=== PATIENT | female | born 1945 | race Caucasian/White ===

== ENCOUNTER → 2016-08-07 | Outpatient (CLI) | payer MEDICARE, BC ==
[~2016-08-07] MED LIST: 00186-0372-20 IH; ALLEGRA 180MG180 MG PO; ALPRAZOLAM1 MG PO; AMITRIPTYLINE H50 M1 PO; AMITRIPTYLINE50 MG PO; AMLODIPINE BES2.5 MG PO; AMLODIPINE5 MG PO; AMOXICILLIN 50500 MG PO; ANUSOL-HC SUPPO25 MG RC; ARTHROTEC 775 MG/TAB; ASPIRIN 81M81 MG/TA2 PO; ATROVENT I0.2 MG/1 M IH; BACTRIM DS 8001 TAB PO; BIOTENE DRY M1000 ML MM; CALCIUM + D 5001 TAB PO; CALCIUM 600MG+D1 TAB PO; CALCIUM CARBONA1 TA2 PO; CENTRUM SILVER1 CTB PO; CINNAMON500 MG PO; CLARITIN 1010 MG/TAB PO; CLEOCIN HC150 MG/CAP PO; CLEOCIN HCL300 MG PO; CLOBETASOL0.051 TP; CLONAZEPAM1 MG PO; COLACE 100100 MG/CAP PO; CRANBERRY500 M3 PO; CYCLOBENZAPRINE10 MG PO; CYTOTEC 20200 MCG/T1; CYTOTEC200 MCG PO; DECADRON OPHTH D5 ML OP; DEXAMETHASONE; DEXAMETHASONE0.5 MG PO; DICLOFENAC SOD75 MG PO; DITROPAN 5MG TAB5 MG PO; DITROPAN XL 5MG5 M1 PO; DOXYCYCLINE 10100 MG PO; DUEXIS 26.6 MG-1 TAB PO; ELAVIL100 MG PO; FAMILY PHARMAC0.4 MG PO; FENTANYL 25 MCG TOP; FENTANYL 50MCG TD; FENTANYL 50MCG TOP; FENTANYL 75MCG TOP; FERROUS SU325 MG/TAB PO; FERROUS SULFAT324 MG PO; FIBERCON; FIBERCON PO; FIBERCON500 MG PO; FIBERCON625 MG PO; FIORICET 325 MG1 TA1 PO; FLUOXETINE PO; FORADIL; FORADIL AERO0.012 MG IH; GEODON60 MG PO; GLYCOLAX17 GM/PACK PO; HAIR SKIN AND NAILS; HAIR SKIN NAIL PO; HAIRSKINNAILS PO; HALCION0.25 MG PO; INTRATHECAL PUMP; IPRATROPIUM BROM3 M1 IH; IRON TABLETS325 MG PO; KETOROLAC10 MG PO; KLOR-CON 1010 MEQ; KLOR-CON 88 MEQ PO; KLOR-CON M2020 MEQ PO; LASIX 20MG TABL20 MG PO; LASIX40 MG PO; LIPITOR 10MG10 MG PO; LOPRESSOR 225 MG/TAB PO; LORTAB 7.5/5001 TAB; LOTRIMIN1% TP; LOVENOX 4040 MG/0.4 SQ; LYRICA75 MG PO; MEDROL 4MG DOSPA4 MG PO; MELATONIN CR3 MG PO; MELATONIN0.5 MG SL; MELATONIN3 M1 PO; MIACALCIN NASA3.7 ML NS; MIRALAX PA17 GM/Dose PO; MIRAPEX 1MG PO; MIRAPEX0.25 MG PO; MIRAPEX0.5 MG PO; MIRTAZAPINE45 MG PO; MISOPROST200 MCG PO; MORPHINE 1515 MG/TAB PO; MULTI VITAMINS1 TAB PO; MULTIPLE VITAMI1 CAP PO; MYRBETR25MG PO; MYRBETR50MG PO; NASACORT AQ N16.5 GM NS; NASACORT55 MCG/ACT NS; NEURONTIN100 MG/CAP PO; NITROSTAT0.4 MG/TAB; NITROSTAT0.4 MG/TAB SL; NORCO 325 MG-101 TAB PO; NORVASC 5MG5 MG/TAB PO; NORVASC2.5 MG PO; NYSTATIN 100MU/ML PO; OMEGA-3 FISH1000 MG PO; OXY IR5 MG PO; OXYCODONE HCL20 MG PO; OXYCODONE/APAP1 TA4 PO; OXYCONTIN10 MG PO; OXYTROL PA1 PATCH.BW TD; OZURDEX0.7 MG IO; PERCOCET 325 MG1 TA2 PO; PERCOCET 500 MG1 TAB PO; PERCR 7.5 PO; PHENERGAN 25 TA25 MG PO; PHENERGAN25 MG RC; POLYETHYLENE GL1 OI1 PO; POTASSIUM CHLOR8 ME1 PO; PREDNISONE20 MG PO; PRILOSEC 20MG20 MG PO; PRINCIPEN500 MG PO; PRINIVIL20 MG PO; PRISTIQ 50 MG T50 MG PO; PROBIOTIC-MAJOR PO; PROVENTIL0.09 MG/A1 IH; PROZAC 20MG20 MG PO; PULMICORT0.5 MG/2 M IH; RANITIDINE300 MG PO; RAZADYNE 4MG (FO4 MG PO; RAZADYNE8 MG PO; ROXICODONE 55 MG/TAB PO; RT ALBUTER2.5 MG/0.5 IH; RT SPIRIVA18 MCG IH; SEE INSTRUCTIONS IT; SEROQUEL 2525 MG/TAB PO; SEROQUEL50 MG PO; SIMVASTATIN10 MG PO; SINEMET 25/101 UDTAB PO; SINGULAIR 110 MG/TAB PO; SINGULAIR10 MG PO; SPIRIVA INH; SPIRIVA18 MCG IH; TESSALON P100 MG/CAP PO; TESSALON PERLE100 MG PO; THERA TABS1 TAB PO; THERA TEARS; THERAGRAN1 TA1 PO; THERATEARS 15 M15 ML OP; TOPROL XL 25MG25 MG PO; TRIAMCINOLONE A15 G3 TP; VALIUM 2MG T2 MG/TAB PO; VITAMIN C500 MG PO; VITAMIN D1000 IU PO; VITAMIN D2000 I1 PO; VITAMIN D2400 IU PO; VITAMIN D32000 I1 PO; VITAMIN D32000 IU PO; VOLTAREN SR25 MG/TAB PO; WELLBUTRIN 75MG75 MG PO; XANAX 1MG1 MG PO; ZANAFLEX2 MG PO; ZANTAC 150150 MG PO; ZANTAC 150MG T150 MG PO; ZESTRIL 20MG TA20 MG PO; ZOCOR 10MG10 MG PO; ZYPREXA10 MG PO; [UNRECOGNIZED DRUG - CODE]; [UNRECOGNIZED DRUG - OTHER] OP; [UNRECOGNIZED DRUG - OTHER] TP
== END ==
LOC: BHSO 09:26
DX: F06.32 Mood disorder due to known physiological condition with major depressive-like episode (principal)

== ENCOUNTER → 2016-09-28 | Outpatient (CLI) | payer MEDICARE, BC | LOC: BHSO 09:21 | DX: F06.32 Mood disorder due to known physiological condition with major depressive-like episode (principal) ==

== ENCOUNTER 2016-11-20 16:58 | Emergency (ER) | payer MEDICARE, BC ==
[~2016-11-20] VITALS: Ht 154.9 cm; Wt 67.7 kg
[~2016-11-20 16:58] MED LIST changes: -CLEOCIN HC150 MG/CAP PO; -NEURONTIN100 MG/CAP PO; -PRISTIQ 50 MG T50 MG PO; -SINEMET 25/101 UDTAB PO
[2016-11-20 17:09] VITALS: BP 124/58; TEMP 97.9
[2016-11-20 18:41] LABS: BASO % 0.4 % (0.0-2.0); EOS # 0.1 (0.0-0.7); EOS % 1.9 % (0-4.0); GRAN # 4.8 (1.4-6.5); GRAN % 66.1 % (42.2-75.2); LYMPH # 1.8 (1.2-3.4); LYMPH % 24.2 % (20.0-51.0); MEAN CELL VOLUME 89 fl (80.0-100.0); MEAN CORPUSCULAR HGB CONC 34 g/dl (33.0-37.0); MEAN PLATELET VOLUME 9.5 fl (7.4-10.4); MONO # 0.5 (0.1-0.6); MONO % 7.1 % (1.7-9.3); PLATELET COUNT 165 K/mm3 (130-400); RED BLOOD COUNT 3.66 M/mm3 (4.10-5.30); REDCELL DISTRIBUTION WIDTH-CV 12.4 % (11.5-14.5); WHITE BLOOD COUNT 7.3 K/mm3 (4.8-10.8)
[2016-11-20 18:43] LABS: HEMATOCRIT 32.6 % (37.0-47.0); HEMOGLOBIN 11.2 g/dl (12.5-16.0); MEAN CORPUSCULAR HEMOGLOBIN 31 pg (27.0-31.0)
[2016-11-20 18:56] LABS: ADJUSTED CALCIUM 9.6 mg/dL (8.4-10.2); ALBUMIN 4.1 gm/dL (3.5-5.0); BILIRUBIN,TOTAL 0.6 mg/dL (0.0-1.0); C-REACTIVE PROTEIN 2.8 mg/dL (0.0-0.9); CALCIUM 9.7 mg/dL (8.4-10.2); CREATININE, serum 0.87 mg/dL (0.52-1.25); TOTAL PROTEIN 7.1 gm/dL (6.4-8.2)
[2016-11-20] MEDS ORDERED: CLEOCIN HC150 MG/CAP PO (19:08)
[2016-11-20 19:38] VITALS: PULSE 72
== END 2016-11-20 19:40 | disposition home or self-care (01) ==
LOC: COL.ER 16:58
PROVIDERS: Nurse Practitioner
DX: L03.116 Cellulitis of left lower limb (principal); S81.812A Laceration without foreign body, left lower leg, initial encounter; W01.198A Fall on same level from slipping, tripping and stumbling with subsequent striking against other object, initial encounter; I10 Essential (primary) hypertension; J44.9 Chronic obstructive pulmonary disease, unspecified; F32.9 Major depressive disorder, single episode, unspecified; Z23 Encounter for immunization

== ENCOUNTER → 2016-11-27 | Outpatient (CLI) | payer MEDICARE, BC ==
[~2016-11-27] MED LIST changes: +CLEOCIN HC150 MG/CAP PO; +NEURONTIN100 MG/CAP PO; +PRISTIQ 50 MG T50 MG PO; +SINEMET 25/101 UDTAB PO
== END ==
LOC: BHSO 08:31
DX: F06.32 Mood disorder due to known physiological condition with major depressive-like episode (principal)

== ENCOUNTER → 2016-12-27 | Outpatient (CLI) | payer MEDICARE, BC | LOC: BHSO 09:25 | DX: F06.32 Mood disorder due to known physiological condition with major depressive-like episode (principal) ==

== ENCOUNTER 2017-01-20 15:51 | Emergency (ER) | payer MEDICARE, BC ==
[~2017-01-20] VITALS: Ht 154.9 cm; Wt 72.3 kg
[~2017-01-20 15:51] MED LIST changes: -NEURONTIN100 MG/CAP PO; -PRISTIQ 50 MG T50 MG PO; -SINEMET 25/101 UDTAB PO
[2017-01-20 16:51] LABS: BASO % 0.4 % (0.0-2.0); EOS # 0.2 (0.0-0.7); EOS % 3.5 % (0-4.0); GRAN # 2.2 (1.4-6.5); GRAN % 49.3 % (42.2-75.2); LYMPH # 1.7 (1.2-3.4); LYMPH % 36.9 % (20.0-51.0); MEAN CELL VOLUME 89 fl (80.0-100.0); MEAN CORPUSCULAR HGB CONC 34 g/dl (33.0-37.0); MONO # 0.4 (0.1-0.6); MONO % 8.8 % (1.7-9.3); PLATELET COUNT 158 K/mm3 (130-400); RED BLOOD COUNT 3.58 M/mm3 (4.10-5.30); REDCELL DISTRIBUTION WIDTH-CV 13.3 % (11.5-14.5); WHITE BLOOD COUNT 4.6 K/mm3 (4.8-10.8)
[2017-01-20 16:52] LABS: HEMATOCRIT 31.7 % (37.0-47.0); HEMOGLOBIN 10.8 g/dl (12.5-16.0); MEAN CORPUSCULAR HEMOGLOBIN 30 pg (27.0-31.0)
[2017-01-20 17:03] LABS: ADJUSTED CALCIUM 9.1 mg/dL (8.4-10.2); ALBUMIN 4.2 gm/dL (3.5-5.0); BILIRUBIN,TOTAL 0.3 mg/dL (0.0-1.0); CALCIUM 9.3 mg/dL (8.4-10.2); CREATININE, serum 0.79 mg/dL (0.52-1.25); POTASSIUM 3.8 mmol/L (3.4-5.0); TOTAL PROTEIN 7.2 gm/dL (6.4-8.2)
[2017-01-20 17:49] VITALS: BP 146/75; PULSE 59; TEMP 98.4
== END 2017-01-20 17:50 | disposition home or self-care (01) ==
LOC: COL.ER 15:51
PROVIDERS: Emergency Medicine
DX: R60.9 Edema, unspecified (principal); E11.42 Type 2 diabetes mellitus with diabetic polyneuropathy; I11.0 Hypertensive heart disease with heart failure; I50.9 Heart failure, unspecified; I25.2 Old myocardial infarction; E78.5 Hyperlipidemia, unspecified; K21.9 Gastro-esophageal reflux disease without esophagitis; F31.9 Bipolar disorder, unspecified; F41.9 Anxiety disorder, unspecified; J44.9 Chronic obstructive pulmonary disease, unspecified; M19.90 Unspecified osteoarthritis, unspecified site; G89.29 Other chronic pain; G20 Parkinson's disease; G30.9 Alzheimer's disease, unspecified; Z90.49 Acquired absence of other specified parts of digestive tract; Z98.890 Other specified postprocedural states; Z98.84 Bariatric surgery status; Z96.651 Presence of right artificial knee joint; Z99.81 Dependence on supplemental oxygen
CPT/HCPCS: J1940

== ENCOUNTER → 2017-03-04 | Outpatient (CLI) | payer MEDICARE, BC ==
[~2017-03-04] MED LIST changes: +NEURONTIN100 MG/CAP PO; +PRISTIQ 50 MG T50 MG PO; +SINEMET 25/101 UDTAB PO
== END ==
LOC: BHSO 09:27
DX: F33.41 Major depressive disorder, recurrent, in partial remission (principal)

== ENCOUNTER 2017-03-15 19:11 | Emergency (ER) | payer MEDICARE, BC ==
[~2017-03-15] VITALS: Ht 152.4 cm; Wt 81.8 kg
[~2017-03-15 19:11] MED LIST changes: -NEURONTIN100 MG/CAP PO; -PRISTIQ 50 MG T50 MG PO; -SINEMET 25/101 UDTAB PO
[2017-03-15 19:12] VITALS: BP 173/86; TEMP 98.8
[2017-03-15] MEDS ORDERED: SEROQUEL50 MG PO (20:01)
[2017-03-15] MEDS ORDERED: NEURONTIN100 MG/CAP PO (20:01)
[2017-03-15] MEDS ORDERED: PRISTIQ 50 MG T50 MG PO (20:02)
[2017-03-15] MEDS ORDERED: SINEMET 25/101 UDTAB PO (20:10)
[2017-03-15 21:41] LABS: BASO % 0.3 % (0.0-2.0); EOS # 0.2 (0.0-0.7); EOS % 3.3 % (0-4.0); GRAN # 3.5 (1.4-6.5); GRAN % 57.7 % (42.2-75.2); HEMOGLOBIN 10.8 g/dl (12.5-16.0); LYMPH # 1.9 (1.2-3.4); LYMPH % 30.8 % (20.0-51.0); MEAN CELL VOLUME 89 fl (80.0-100.0); MEAN CORPUSCULAR HEMOGLOBIN 31 pg (27.0-31.0); MEAN CORPUSCULAR HGB CONC 35 g/dl (33.0-37.0); MEAN PLATELET VOLUME 9.2 fl (7.4-10.4); MONO # 0.5 (0.1-0.6); MONO % 7.6 % (1.7-9.3); PLATELET COUNT 172 K/mm3 (130-400); REDCELL DISTRIBUTION WIDTH-CV 13.6 % (11.5-14.5)
[2017-03-15 21:55] LABS: ADJUSTED CALCIUM 9.3 mg/dL (8.4-10.2); ALBUMIN 4.4 gm/dL (3.5-5.0); BILIRUBIN,TOTAL 0.5 mg/dL (0.0-1.0); CALCIUM 9.6 mg/dL (8.4-10.2); CREATININE, serum 0.64 mg/dL (0.52-1.25); POTASSIUM 3.9 mmol/L (3.4-5.0); TOTAL PROTEIN 7.5 gm/dL (6.4-8.2)
[2017-03-15 23:23] VITALS: PULSE 60
== END 2017-03-15 23:30 | disposition home or self-care (01) ==
LOC: COL.ER 19:11
PROVIDERS: Emergency Medicine
DX: R60.0 Localized edema (principal); Z98.890 Other specified postprocedural states
CPT/HCPCS: J1940

== ENCOUNTER → 2017-06-04 | Outpatient (CLI) | payer MEDICARE, BC, OTHER ==
[~2017-06-04] MED LIST changes: +NEURONTIN100 MG/CAP PO; +PRISTIQ 50 MG T50 MG PO; +SINEMET 25/101 UDTAB PO
== END ==
LOC: MC.RAD 11:19
DX: Z12.31 Encounter for screening mammogram for malignant neoplasm of breast (principal)

== ENCOUNTER → 2017-06-05 | Outpatient (CLI) | payer MEDICARE, BC, OTHER | LOC: BHSO 09:29 | DX: F33.41 Major depressive disorder, recurrent, in partial remission (principal) ==

== ENCOUNTER 2017-08-29 11:08 | Inpatient (IN) | payer MEDICARE, BC, OTHER ==
[~2017-08-29] VITALS: Ht 152.4 cm; Wt 90.5 kg
[2017-08-29] VITALS (144 sets, daily range): BP systolic 103–136; BP diastolic 60–80; PULSE 62–93; TEMP 98.4; O2SAT 88–100
[2017-08-29 12:19] LABS: ARTERIAL BLD GAS O2 SATURATION 95.2 % (92-100); ARTERIAL BLD GAS TCO2 CT 28.9; ARTERIAL BLOOD GAS BASE EXCESS 2.1 (-2-2); ARTERIAL BLOOD GAS HCO3 27.5 meq/L (22-26); ARTERIAL BLOOD GAS PCO2 46.4 mmHg (35-45); ARTERIAL BLOOD GAS PO2 81.4 mmHg (80-100); ARTERIAL BLOOD GAS pH 7.39 (7.35-7.45)
[2017-08-29 12:35] LABS: ALANINE AMINOTRANSFERASE 24 U/L (9-52); ALBUMIN 4.4 gm/dL (3.5-5.0); ALKALINE PHOSPHATASE 121 U/L (50-136); ANION GAP 9 mmol/L (7-16); AST,SGOT 43 U/L (15-37); BILIRUBIN,TOTAL 0.4 mg/dL (0.0-1.0); BLOOD UREA NITROGEN 23 mg/dL (7-17); CALCIUM 9.5 mg/dL (8.4-10.2); CARBON DIOXIDE 30 mmol/L (22-30); CHLORIDE 93 mmol/L (98-107); CREATININE, serum 0.65 mg/dL (0.52-1.25); GLUCOSE 111 mg/dL (74-106); POTASSIUM 3.8 mmol/L (3.4-5.0); SODIUM 131 mmol/L (137-145); TOTAL PROTEIN 7.5 gm/dL (6.4-8.2)
[2017-08-29 12:40] LABS: BASO % 0.4 % (0.0-2.0); EOS # 0.1 (0.0-0.7); EOS % 1.7 % (0-4.0); LYMPH # 1.6 (1.2-3.4); MEAN CELL VOLUME 91 fl (80.0-100.0); MEAN CORPUSCULAR HGB CONC 34 g/dl (33.0-37.0); MEAN PLATELET VOLUME 9.3 fl (7.4-10.4); MONO # 0.5 (0.1-0.6); MONO % 6.5 % (1.7-9.3); PLATELET COUNT 189 K/mm3 (130-400); RED BLOOD COUNT 3.62 M/mm3 (4.10-5.30); REDCELL DISTRIBUTION WIDTH-CV 13.2 % (11.5-14.5)
[2017-08-29 12:44] LABS: PROTHROMBIN TIME 12.1 SECONDS (9.7-12.8)
[2017-08-29 12:45] LABS: TROPONIN-I < 0.012 ng/mL (0.000-0.034)
[2017-08-29 12:46] LABS: TROPONIN-I < 0.012 ng/mL (0.000-0.034)
[2017-08-29 12:47] LABS: PARTIAL THROMBOPLASTIN TIME 30.8 SECONDS (26.0-37.0)
[2017-08-29 12:48] LABS: HEMOGLOBIN 11.1 g/dl (12.5-16.0); MEAN CORPUSCULAR HEMOGLOBIN 31 pg (27.0-31.0)
[2017-08-29] MEDS ORDERED: PLAVIX 75MG TAB75 MG PO (13:22)
[2017-08-29] MEDS ORDERED: BREO IH (13:26)
[2017-08-29] MEDS ORDERED: [UNRECOGNIZED DRUG - OTHER] TOP (13:34)
[2017-08-29] MEDS ORDERED: THERATEARS SGL PO (13:37)
[2017-08-29] MEDS ORDERED: FERROUS SU325 MG/TAB PO (13:38)
[2017-08-29] MEDS ORDERED: ARICEPT 5MG PO (13:38)
[2017-08-29] MEDS ORDERED: INCRUSE EL62.5 MCG/A IH (13:42)
[2017-08-29] MEDS ORDERED: LOPRESSOR 225 MG/TAB PO (13:42)
[2017-08-29] MEDS ORDERED: HAIRSKINNAILS PO (13:48)
[2017-08-29] MEDS ORDERED: MYRBETR50MG PO (13:48)
[2017-08-29] MEDS ORDERED: PAMELOR 25MG25 MG PO (13:49)
[2017-08-29] MEDS ORDERED: PROBIOTIC FORMU1 CAP PO (13:50)
[2017-08-29] MEDS ORDERED: FIBERCON PO (13:50)
[2017-08-29] MEDS ORDERED: RESTORIL 1515 MG/CAP PO (14:15)
[2017-08-29] MEDS ORDERED: VENTOLIN0.09 MG IH (14:17)
[2017-08-29 14:20] LABS: COLLECTION METHOD CATHETER
[2017-08-29 14:26] LABS: PH 7 (5-8); SQUAMOUS EPITHELIAL 0-2 /hpf; URINE APPEARANCE Clear; URINE BACTERIA Rare /hpf; URINE BILIRUBIN Negative (NEGATIVE); URINE BLOOD Negative (NEGATIVE); URINE COLOR Straw; URINE GLUCOSE Negative (NEGATIVE); URINE KETONE Negative (NEGATIVE); URINE LEUKOCYTE ESTERASE Trace (NEGATIVE); URINE NITRATE Negative (NEGATIVE); URINE PROTEIN(semi-quant) Negative (NEGATIVE); URINE RBC 0-2 /hpf; URINE UROBILINOGEN Negative (NEGATIVE)
[2017-08-30] VITALS (398 sets, daily range): BP systolic 80–178; BP diastolic 36–97; PULSE 54–96; TEMP 97.4–98.1; O2SAT 84–100
[2017-08-30 02:53] LABS: BASO % 0.4 % (0.0-2.0); EOS # 0.1 (0.0-0.7); EOS % 1.4 % (0-4.0); GRAN # 3.8 (1.4-6.5); GRAN % 67.4 % (42.2-75.2); LYMPH # 1.3 (1.2-3.4); LYMPH % 22.3 % (20.0-51.0); MEAN CELL VOLUME 91 fl (80.0-100.0); MEAN CORPUSCULAR HGB CONC 33 g/dl (33.0-37.0); MEAN PLATELET VOLUME 9.4 fl (7.4-10.4); MONO # 0.5 (0.1-0.6); MONO % 8.3 % (1.7-9.3); PLATELET COUNT 147 K/mm3 (130-400); RED BLOOD COUNT 3.18 M/mm3 (4.10-5.30); REDCELL DISTRIBUTION WIDTH-CV 13.2 % (11.5-14.5)
[2017-08-30 02:54] LABS: HEMATOCRIT 28.8 % (37.0-47.0); HEMOGLOBIN 9.6 g/dl (12.5-16.0); MEAN CORPUSCULAR HEMOGLOBIN 30 pg (27.0-31.0)
[2017-08-30 03:03] LABS: ANION GAP 5 mmol/L (7-16); BLOOD UREA NITROGEN 13 mg/dL (7-17); CALCIUM 7.9 mg/dL (8.4-10.2); CARBON DIOXIDE 27 mmol/L (22-30); CHLORIDE 98 mmol/L (98-107); CREATININE, serum 0.58 mg/dL (0.52-1.25); GLUCOSE 102 mg/dL (74-106); MAGNESIUM 1.6 mg/dL (1.6-2.3); POTASSIUM 3.8 mmol/L (3.4-5.0); SODIUM 130 mmol/L (137-145)
[2017-08-30 03:47] LABS: TROPONIN-I < 0.012 ng/mL (0.000-0.034)
[2017-08-31 00:22] VITALS: BP 111/63; PULSE 86; TEMP 97.6
[2017-08-31 04:07] VITALS: BP 123/49; PULSE 76; TEMP 97.7
[2017-08-31 07:38] LABS: CALCIUM 8.6 mg/dL (8.4-10.2); CREATININE, serum 0.62 mg/dL (0.52-1.25); POTASSIUM 3.5 mmol/L (3.4-5.0)
[2017-08-31 08:16] VITALS: BP 184/105; PULSE 102; TEMP 98.5
[2017-08-31 11:20] VITALS: BP 152/122; PULSE 98; TEMP 98
[2017-08-31 16:01] VITALS: BP 150/76; PULSE 75; TEMP 97.8
[2017-08-31] MEDS ORDERED: ELIQUIS 5MG PO (16:42)
[2017-08-31] MEDS ORDERED: TYLENOL 325MG325 MG PO (16:43)
[2017-08-31] MEDS ORDERED: BETAPACE 80MG80 MG PO (16:43)
[2017-08-31] MEDS ORDERED: SEROQUEL 2525 MG/TAB PO (16:44)
[2017-08-31] MEDS ORDERED: DESENEX TP (16:45)
== END 2017-08-31 17:32 | disposition home or self-care (01) | DRG 309 ==
LOC: COL.ER 11:08 → ICU 18:23 → MEDICAL 08-30 11:31
PROVIDERS: Anesthesiology Critical Care Medicine; Family Medicine
DX: I48.91 Unspecified atrial fibrillation (principal); F02.81 Dementia in other diseases classified elsewhere, unspecified severity, with behavioral disturbance; E87.1 Hypo-osmolality and hyponatremia; B37.49 Other urogenital candidiasis; N39.0 Urinary tract infection, site not specified; G20 Parkinson's disease; I10 Essential (primary) hypertension; G51.0 Bell's palsy; E11.9 Type 2 diabetes mellitus without complications; F31.9 Bipolar disorder, unspecified; J44.9 Chronic obstructive pulmonary disease, unspecified; F03.90 Unspecified dementia, unspecified severity, without behavioral disturbance, psychotic disturbance, mood disturbance, and anxiety; G89.29 Other chronic pain; M54.9 Dorsalgia, unspecified; R44.1 Visual hallucinations; F41.1 Generalized anxiety disorder; B96.20 Unspecified Escherichia coli [E. coli] as the cause of diseases classified elsewhere
CPT/HCPCS: 99223-AI; 99239; J1650; J3475; J7030; J7050; Q9967

== ENCOUNTER 2017-09-04 10:26 | Observation (INO) | payer MEDICARE, BC, OTHER ==
[~2017-09-04] VITALS: Ht 152.4 cm; Wt 92.6 kg
[~2017-09-04 10:26] MED LIST changes: +ARICEPT 5MG PO; +BETAPACE 80MG80 MG PO; +BREO IH; +DESENEX TP; +ELIQUIS 5MG PO; +INCRUSE EL62.5 MCG/A IH; +PAMELOR 25MG25 MG PO; +PLAVIX 75MG TAB75 MG PO; +PROBIOTIC FORMU1 CAP PO; +RESTORIL 1515 MG/CAP PO; +THERATEARS SGL PO; +TYLENOL 325MG325 MG PO; +VENTOLIN0.09 MG IH; +[UNRECOGNIZED DRUG - OTHER] TOP
[2017-09-04 11:40] LABS: BASO % 0.3 % (0.0-2.0); EOS # 0.2 (0.0-0.7); EOS % 2.9 % (0-4.0); GRAN % 72.8 % (42.2-75.2); LYMPH # 1.1 (1.2-3.4); LYMPH % 16.3 % (20.0-51.0); MEAN CELL VOLUME 94 fl (80.0-100.0); MEAN CORPUSCULAR HGB CONC 32 g/dl (33.0-37.0); MEAN PLATELET VOLUME 9.3 fl (7.4-10.4); MONO # 0.5 (0.1-0.6); MONO % 7.3 % (1.7-9.3); PLATELET COUNT 167 K/mm3 (130-400); RED BLOOD COUNT 2.93 M/mm3 (4.10-5.30); REDCELL DISTRIBUTION WIDTH-CV 13.3 % (11.5-14.5)
[2017-09-04 11:41] LABS: HEMATOCRIT 27.6 % (37.0-47.0); HEMOGLOBIN 8.9 g/dl (12.5-16.0); MEAN CORPUSCULAR HEMOGLOBIN 30 pg (27.0-31.0)
[2017-09-04 11:50] LABS: INR 1.4 (0.8-3.0); PROTHROMBIN TIME 15.7 SECONDS (9.7-12.8)
[2017-09-04 11:52] LABS: ALBUMIN 3.4 gm/dL (3.5-5.0); BILIRUBIN,TOTAL 0.2 mg/dL (0.0-1.0); CALCIUM 8.8 mg/dL (8.4-10.2); CREATININE, serum 0.64 mg/dL (0.52-1.25); PARTIAL THROMBOPLASTIN TIME 35.8 SECONDS (26.0-37.0); POTASSIUM 4.1 mmol/L (3.4-5.0); TOTAL PROTEIN 5.8 gm/dL (6.4-8.2)
[2017-09-04 13:02] LABS: COLLECTION METHOD CATHETER
[2017-09-04 13:17] LABS: PH 5 (5-8); SQUAMOUS EPITHELIAL 0-2 /hpf; URINE APPEARANCE Hazy; URINE BACTERIA Rare /hpf; URINE BILIRUBIN Negative (NEGATIVE); URINE BLOOD 2+ (NEGATIVE); URINE COLOR Yellow; URINE GLUCOSE Negative (NEGATIVE); URINE KETONE Negative (NEGATIVE); URINE LEUKOCYTE ESTERASE Trace (NEGATIVE); URINE NITRATE Negative (NEGATIVE); URINE PROTEIN(semi-quant) Negative (NEGATIVE); URINE UROBILINOGEN Negative (NEGATIVE)
[2017-09-04 17:16] VITALS: BP 152/65; PULSE 65; TEMP 98
[2017-09-04 18:20] LABS: HEMATOCRIT 30.7 % (37.0-47.0); HEMOGLOBIN 9.9 g/dl (12.5-16.0)
[2017-09-04 20:00] VITALS: BP 130/77; PULSE 63; TEMP 98.1
[2017-09-05 01:48] VITALS: BP 111/84; PULSE 75; TEMP 97.3
[2017-09-05 04:46] VITALS: BP 117/99; PULSE 116; TEMP 98.3
[2017-09-05 07:13] LABS: BASO % 0.4 % (0.0-2.0); EOS # 0.2 (0.0-0.7); GRAN # 2.7 (1.4-6.5); GRAN % 55.8 % (42.2-75.2); LYMPH # 1.4 (1.2-3.4); MEAN CELL VOLUME 92 fl (80.0-100.0); MEAN CORPUSCULAR HGB CONC 33 g/dl (33.0-37.0); MONO # 0.4 (0.1-0.6); MONO % 9.2 % (1.7-9.3); PLATELET COUNT 160 K/mm3 (130-400); RED BLOOD COUNT 3.22 M/mm3 (4.10-5.30); REDCELL DISTRIBUTION WIDTH-CV 13.4 % (11.5-14.5)
[2017-09-05 07:18] LABS: HEMATOCRIT 29.7 % (37.0-47.0); HEMOGLOBIN 9.8 g/dl (12.5-16.0); MEAN CORPUSCULAR HEMOGLOBIN 30 pg (27.0-31.0)
[2017-09-05 07:23] LABS: CALCIUM 8.7 mg/dL (8.4-10.2); CREATININE, serum 0.57 mg/dL (0.52-1.25); POTASSIUM 3.8 mmol/L (3.4-5.0)
[2017-09-05 08:34] VITALS: BP 139/83; PULSE 62; TEMP 97.6
[2017-09-05 11:03] VITALS: BP 152/118; PULSE 82; TEMP 98
[2017-09-05 14:06] VITALS: BP 122/58; PULSE 102; TEMP 98.4
[2017-09-05 19:40] VITALS: BP 160/100; PULSE 73; TEMP 97.8
[2017-09-06 00:31] VITALS: BP 97/43; PULSE 58; TEMP 98.2
[2017-09-06 03:57] VITALS: BP 108/75; PULSE 58; TEMP 98.3
[2017-09-06 06:52] LABS: BASO % 0.4 % (0.0-2.0); EOS # 0.2 (0.0-0.7); EOS % 3.1 % (0-4.0); GRAN # 3.2 (1.4-6.5); GRAN % 65.4 % (42.2-75.2); LYMPH # 1.1 (1.2-3.4); LYMPH % 21.5 % (20.0-51.0); MEAN CELL VOLUME 96 fl (80.0-100.0); MEAN CORPUSCULAR HGB CONC 31 g/dl (33.0-37.0); MEAN PLATELET VOLUME 9.1 fl (7.4-10.4); MONO # 0.5 (0.1-0.6); MONO % 9.2 % (1.7-9.3); PLATELET COUNT 157 K/mm3 (130-400); RED BLOOD COUNT 3.13 M/mm3 (4.10-5.30); REDCELL DISTRIBUTION WIDTH-CV 13.8 % (11.5-14.5)
[2017-09-06 06:56] LABS: HEMOGLOBIN 9.4 g/dl (12.5-16.0); MEAN CORPUSCULAR HEMOGLOBIN 30 pg (27.0-31.0)
[2017-09-06 07:13] LABS: CALCIUM 8.5 mg/dL (8.4-10.2); CREATININE, serum 0.73 mg/dL (0.52-1.25); POTASSIUM 3.7 mmol/L (3.4-5.0)
[2017-09-06 08:24] VITALS: BP 129/52; PULSE 67; TEMP 98.9
[2017-09-06 11:04] VITALS: BP 172/70; PULSE 88; TEMP 98.8
[2017-09-06] MEDS ORDERED: LASIX 40MG TABL40 MG PO (13:15)
[2017-09-06] MEDS ORDERED: AMOXICILLIN/CLA1 TA1 PO (13:18)
[2017-09-06] MEDS ORDERED: PROTONIX 40MG T40 MG PO (13:19)
[2017-09-06] MEDS ORDERED: DIFLUCAN150 MG PO (13:19)
== END 2017-09-06 17:49 | disposition home or self-care (01) ==
LOC: COL.ER 10:26 → MEDICAL 15:18
PROVIDERS: Emergency Medicine; Physician Assistant
DX: K92.1 Melena (principal); D50.9 Iron deficiency anemia, unspecified; K29.30 Chronic superficial gastritis without bleeding; K64.1 Second degree hemorrhoids; K57.30 Diverticulosis of large intestine without perforation or abscess without bleeding; R55 Syncope and collapse; R53.1 Weakness; K64.8 Other hemorrhoids; N39.0 Urinary tract infection, site not specified; I48.91 Unspecified atrial fibrillation; E11.9 Type 2 diabetes mellitus without complications; L30.4 Erythema intertrigo; G20 Parkinson's disease; E78.5 Hyperlipidemia, unspecified; F31.9 Bipolar disorder, unspecified; F03.90 Unspecified dementia, unspecified severity, without behavioral disturbance, psychotic disturbance, mood disturbance, and anxiety; I25.10 Atherosclerotic heart disease of native coronary artery without angina pectoris; I25.2 Old myocardial infarction; I11.0 Hypertensive heart disease with heart failure; I50.9 Heart failure, unspecified; Z96.653 Presence of artificial knee joint, bilateral; Z90.49 Acquired absence of other specified parts of digestive tract; Z79.01 Long term (current) use of anticoagulants; Z79.51 Long term (current) use of inhaled steroids; Z79.4 Long term (current) use of insulin; Z88.1 Allergy status to other antibiotic agents; Z88.8 Allergy status to other drugs, medicaments and biological substances; Z82.49 Family history of ischemic heart disease and other diseases of the circulatory system
CPT/HCPCS: 99222-AI; 99232-AI; C9113; G0378; G8978-GP; G8979-GP; G8987-GO; G8988-GO; J1815; J2250; J2704; J7030